=== PATIENT | female | born 1970 | race Caucasian/White ===

== ENCOUNTER 2019-07-23 18:02 | Emergency (ER) | payer OTHER ==
[~2019-07-23] VITALS: Ht 165.1 cm; Wt 65.3 kg
[2019-07-23 19:27] VITALS: Ht 165.1 cm; Wt 65.3 kg
[2019-07-23 21:03] LABS: BASOPHIL % 0.4 % (0-2); PLATELET COUNT 322 x10^3mcL (130-400)
[2019-07-23 21:04] LABS: RED CELL DISTRIBUTION WIDTH 14.8 % (11.5-14.5)
[2019-07-23 21:15] LABS: CALCIUM 9.1 mg/dL (8.5-10.1); CARBON DIOXIDE 27.8 mmol/L (21-32); CHLORIDE SERUM 106 mmol/L (98-107); CREATININE SERUM 0.6 mg/dL (0.6-1.0); GFR1 > 60 mL/min; GLUCOSE SERUM 96 mg/dL (74-106); POTASSIUM SERUM 3.9 mmol/L (3.5-5.1); SODIUM SERUM 141 mmol/L (136-145)
[2019-07-23 21:34] LABS: ALBUMIN 3.8 g/dL (3.4-5.0); ALKALINE PHOSPHATASE 60 U/L (46-116); AST/SGOT 19 U/L (15-37); BILIRUBIN TOTAL 0.31 mg/dL (0.20-1.00); LIPASE 317 IU/L (73-393); TOTAL PROTEIN, SERUM 7.7 g/dL (6.4-8.2)
[2019-07-23 21:56] LABS: ALT/SGPT 28 U/L (14-59)
[2019-07-23 23:07] VITALS: BP 127/76
== END 2019-07-23 23:07 | disposition home or self-care (01) ==
LOC: ED 18:02
PROVIDERS: Emergency Medicine
DX: R10.31 Right lower quadrant pain (principal); R11.0 Nausea; G89.29 Other chronic pain; M54.9 Dorsalgia, unspecified
CPT/HCPCS: J2270; J2405; J7030